=== PATIENT | female | born 1975 | race Caucasian/White ===

== ENCOUNTER 2017-07-31 09:06 | Day surgery (SDC) | payer MEDICAID ==
[~2017-07-31] VITALS: Ht 157.5 cm; Wt 63.4 kg
[2017-07-31] VITALS (13 sets, daily range): BP systolic 97–119; BP diastolic 45–76; PULSE 64–104; RESP 12–18; Ht 157.5 cm; Wt 63.4 kg
[~2017-07-31 09:06] MED LIST: ALBU8.5H5 IH; AZIT250T94 PO; LORA-186 PO; PHEN-530 PO; PRED50TA PO
[2017-07-31] MEDS ORDERED: HYDR-906 PO (09:22)
[2017-07-31 09:52] LABS: BASOPHILS % 0.6 % (0.0-2.0); EOSINOPHILS # 0.1 10^3/ul (0.0-0.5); EOSINOPHILS % 1.4 % (0.0-7.0); HEMATOCRIT 37.2 % (37.0-47.0); HEMOGLOBIN 13.2 g/dl (12.0-16.0); LYMPHOCYTES # 1.8 10^3/ul (0.8-2.9); LYMPHOCYTES % 37.2 % (15.0-51.0); MEAN CORPUSCULAR HEMOGLOBIN 34.3 pg (29.0-33.0); MEAN CORPUSCULAR HGB CONC 35.5 g/dl (32.0-37.0); MEAN CORPUSCULAR VOLUME 96.6 fl (82.0-101.0); MEAN PLATELET VOLUME 10.3 fl (7.4-10.4); MONOCYTE # 0.4 10^3/ul (0.3-0.9); MONOCYTES % 7.4 % (0.0-11.0); NEUTROPHIL # 2.6 10^3/ul (1.6-7.5); NEUTROPHILS % 53.2 % (39.0-77.0); PLATELET COUNT 176 10^3/UL (140-415); RED BLOOD COUNT 3.85 10^6/ul (4.20-5.40); RED CELL DISTRIBUTION WIDTH 11.2 % (11.5-14.5); WHITE BLOOD COUNT 4.8 10^3/ul (4.8-10.8)
[2017-07-31 10:12] LABS: INR 0.96; PROTIME 12.8 Sec (12.2-14.2)
[2017-07-31 10:13] LABS: PARTIAL THROMBOPLASTIN TIME 26.4 Sec (25.0-35.0)
[2017-07-31 10:21] LABS: ADD UMIC YES; UR ASCORBIC ACID NEGATIVE (NEGATIVE); UR BILIRUBIN (Dip) NEGATIVE (NEGATIVE); UR BLOOD (Dip) 2+ mg/dL (NEGATIVE); UR CLARITY CLEAR (CLEAR); UR COLOR YELLOW (YELLOW); UR GLUCOSE (Dip) NEGATIVE (NEGATIVE); UR KETONES (Dip) NEGATIVE (NEGATIVE); UR LEUKOCYTE ESTERASE (Dip) NEGATIVE Leu/ul (NEGATIVE); UR NITRITE (Dip) NEGATIVE (NEGATIVE); UR RBC 2 /HPF (0-5); UR SPECIFIC GRAVITY (Dip) 1.011 (1.003-1.030); UR TOTAL PROTEIN (Dip) NEGATIVE (NEGATIVE); UR UROBILINOGEN (Dip) NEGATIVE (NEGATIVE)
[2017-07-31 10:38] LABS: ALBUMIN/GLOBULIN RATIO 1.21; BILIRUBIN,INDIRECT 0.5 mg/dl (0-1.1); BILIRUBIN,TOTAL 0.5 mg/dl (0.2-1.3); TOTAL PROTEIN 7.3 g/dl (6.1-8.1)
[2017-07-31 10:43] LABS: CALCIUM 8.9 mg/dl (8.4-10.2); CREATININE 0.64 mg/dl (0.44-1.00)
[2017-07-31] MEDS ORDERED: FENTAnyl 50 MCG/ML VIAL ONE (12:15)
[2017-07-31] MEDS ORDERED: MIDAZOLAM 1 MG/ML 2 ML INJ ONE (12:15)
[2017-07-31] MEDS ORDERED: PROPOFOL 20 ML ONE (12:15)
[2017-07-31] MEDS ORDERED: EPHEDrine SULFATE 50 MG/5 ML SYG ONE (13:00)
[2017-07-31] MEDS ORDERED: METOCLOPRAMIDE 10 MG INJ ONE (13:00)
[2017-07-31] MEDS ORDERED: DEXAMETHASONE 4 MG/ML 1 ML INJ ONE (13:00)
[2017-07-31] MEDS ORDERED: ONDANSETRON 4 MG INJ ONE (13:00)
[2017-07-31] MEDS ORDERED: CLINDAMYCIN 600 MG/D5W (PMX) 50 ML IVPB ONE (13:00)
[2017-07-31] MEDS ORDERED: KETOROLAC 30 MG INJ ONE (13:00)
[2017-07-31] MEDS ORDERED: OXYTOCIN 10 UNIT INJ ONE (13:04)
--- NOTE | 2017-07-31 13:13 | PDOCDIS ---
Discharge Instructions CONDITION Patient Condition: Good HOME CARE INSTRUCTIONS: Diet Instructions: Reduced Calorie ACTIVITY: Activity Restrictions: No Restrictions No Sexual Activity Bathing Restrictions: Shower FOLLOW UP/APPOINTMENTS Follow-up Plan Appointment office in 1 week DENISE HAMPTON MD Jul 31, 2017 13:13
[2017-07-31] MEDS ORDERED: MEPERIDINE 25 MG INJ IV PRN (13:30)
[2017-07-31] MEDS ORDERED: morphine (1 MG/ML) 10ML SYRINGE IV PRN ×3 (13:30)
[2017-07-31] MEDS ORDERED: KETOROLAC 30 MG INJ IV PRN (13:30)
[2017-07-31] MEDS ORDERED: EPHEDrine SULFATE 50 MG/5 ML SYG IV PRN (13:30)
[2017-07-31] MEDS ORDERED: METOCLOPRAMIDE 10 MG INJ IV PRN (13:30)
[2017-07-31] MEDS ORDERED: ONDANSETRON 4 MG INJ IV PRN (13:30)
[2017-07-31] MEDS ORDERED: IBUPROFEN 600 MG TAB PO PRN (13:30)
[2017-07-31] MEDS ORDERED: FENTAnyl 50 MCG/ML VIAL IV PRN ×3 (13:30)
--- NOTE | 2017-07-31 13:36 | OPR ---
Date/Time of Note Date/Time of Note DATE: 07/31/17 TIME: 13:14 Operative Report Free Text/Dictation Satisfactory general anesthesia patient prepped and draped and placed in dorsal lithotomy position, manual pelvic examination, lacks vaginal outlet mild cystorectocele, cervix congested throat uterus 8 week size adnexa not palpable. The speculum introduced into the vagina. Cervical lip grasped by Payam tenaculum uterine cavity sounded measured 12 cm cervical dilatation further advanced with the Hegar dilator suction curettage performed by using Vacurette # 8 this was followed with the small sharp curetting total amount of the specimen submitted for the pathology ,estimated blood loss less than 30 cc patient tolerated procedure well transferred to recovery room in good condition, he has received clindamycin 900 mg prior to the surgery, 30 units of Pitocin IV drip. During the procedure Procedure Date: Jul 31, 2017 Preoperative Diagnosis Incomplete Postoperative Diagnosis Same as above Operation/Procedure Performed Dictation suction curette Surgeon see signature line Building Engineer None Anesthesia Type: general Anesthesiologist: DEEP VEE MD Estimated Blood Loss: 10 - 50 ml's Transfusion none Specimen Endometrial tissue Grafts/Implants none Tubes/Drains None Complications none Pt Condition Post Procedure: stable Disposition: other (Same day surgery) Indications Incomplete Procedure Description Under satisfactory general anesthesia patient prepped and draped and placed in dorsal lithotomy position, pelvic examination carried out, noted relaxed vaginal outlet mild cystorectocele ,hypertrophic cervix, uterus 8 weeks size adnexa Not palpable weighted speculum introduced into the vagina anterior cervical lip grasped with Payam tenaculum uterine cavity sounded measured 12 cm cervical dilatation further advanced with Hegar dilator, Vacurette #8 inserted into the uterus for suction curettage then followed with sharp curetting using small sharp curette, the specimen submitted to pathology patient received 30 units of Pitocin through the IV infusion, tolerated procedure well transferred to recovery room in good condition. DENISE HAMPTON MD Jul 31, 2017 13:28
== END 2017-07-31 15:02 | disposition home or self-care (01) ==
LOC: SDS 09:06
PROVIDERS: ATTEND Obstetrics & Gynecology
DX: O03.4 Incomplete spontaneous abortion without complication (principal)
CPT/HCPCS: 59812; 80053; 81001; 85025; 85610; 85730; 86850; 86900; 86901; 88305; J1100; J1885; J2250; J2405; J2590; J2765; J3010; Z7512; Z7610

== ENCOUNTER 2018-01-21 18:41 | Emergency (ER) | END 2018-01-21 23:21 | disposition home or self-care (01) ==

== ENCOUNTER 2018-06-06 22:52 | Outpatient (CLI) | END 2018-06-07 07:22 | disposition home or self-care (01) ==

== ENCOUNTER 2018-06-08 07:12 | Outpatient (CLI) | END 2018-06-08 12:15 | disposition home or self-care (01) ==

== ENCOUNTER 2018-06-10 11:24 | Outpatient (CLI) | END 2018-06-10 12:55 | disposition home or self-care (01) ==

== ENCOUNTER 2018-07-16 10:30 | Inpatient (IN) | END 2018-07-19 16:55 | disposition home or self-care (01) | DRG 766 ==

== ENCOUNTER 2018-08-01 15:57 | Emergency (ER) | END 2018-08-01 21:15 | disposition home or self-care (01) ==